=== PATIENT | male | born 2000 | race Hispanic/Latino ===

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

== ENCOUNTER 2022-11-10 12:53 | Inpatient (IN) | payer SELFPAY ==
[2022-11-10] MEDS ORDERED: FAMOTIDINE 20 MG/2 ML VIAL IV ONE (13:31)
[2022-11-10] MEDS ORDERED: NA CHLORIDE 0.9% 1,000 ML ONE ×2 (13:31→15:17)
[2022-11-10 14:00] LABS: Absolute Lymphocytes (CBC) 2.2 K/uL (0.7-4.9); Hematocrit 44.9 % (39.6-49.0); Lymphocytes % 16.3 % (15.3-44.8); MCV 90.1 fL (80-100); MPV 9.4 fL (7.6-11.3); RBC Red Blood Cell Count 4.98 M/uL (4.33-5.43)
[2022-11-10 14:16] LABS: Albumin 3.9 g/dL (3.4-5.0); Bilirubin Total 1.2 mg/dL (0.2-1.0); Potassium 3.6 mEq/L (3.5-5.1)
--- NOTE | 2022-11-10 15:02 | RAD REPORT ---
EXAM DESCRIPTION: CT - Abdomen Pelvis W Contrast - 11/10/2022 2:26 pm CLINICAL HISTORY: ABD PAIN COMPARISON: No comparisons TECHNIQUE: Thin cut axial CT imaging of the abdomen and pelvis was performed following intravenous a dministration of 95 mL Isovue 300. Multiplanar reformats were generated and reviewed. All CT scans are performed using dose optimization technique as appropriate and may include automated exposure control or mA/KV adjustment according to patient size. FINDINGS: No suspicious findings in the lung bases. The liver demonstrates diffuse parenchymal hypoattenuation suggesting steatosis. Geographic region of fatty sparing adjacent to the gallbladder bed. Adrenal glands, spleen, and pancreas show no suspicio us findings. Gallbladder and biliary tree are also without suspicious finding. Symmetric renal function is seen with no hydronephrosis or suspicious renal mass. Inflammatory changes with hyperenhancement and fat stranding along the appendix. Ill-defined contours at the tip, with an ill-defined 2.9 x 1.1 centimeter fluid collection along the right pelvic sidewal l. Trace amount of non loculated fluid tracking more superiorly along the mesentery, axial image 62. Adjacent ileal loop demonstrates inflammatory changes with mucosal hyperenhancement. No free air, karishma e fluid or inflammatory stranding. No hernia, mass or bulky lymphadenopathy. The urinary bladder is s uboptimally distended limiting evaluation, without significant finding. No suspicious bony findings. IMPRESSION: Findings of ruptured appendix at the tip, with adjacent ileitis. Phlegmon or early absc ess formation along the right pelvic sidewall, measuring 2.9 x 1.1 centimeter in greatest axial dimen sions. No evidence of free air. The findings were communicated to Lis Ballard on 11/10/2022 at 14:56 hours.
--- NOTE | 2022-11-10 15:10 | ER ---
Nurse's Notes [facility] Name: Satnam Melendez Age: 22 yrs Sex: Male : 2000 Arrival Date: 11/10/2022 Time: 12:53 Bed 4 Private MD: Diagnosis: Acute appendicitis with localized peritonitis-ruptured Presentation: 11/10 13:17 Chief complaint: Patient states: ABD pain x 3-4 days near umbilical, denies N/V. vg1 Coronavirus screen: Vaccine status: Patient reports receiving the 2nd dose of the covid vaccine. Ebola Screen: Patient negative for fever greater than or equal to 101.5 degrees Fahrenheit, and additional compatible Ebola Virus Disease symptoms Patient denies exposure to infectious person. Patient denies travel to an Ebola-affected area in the 21 days before illness onset. Initial Sepsis Screen: Does the patient meet any 2 criteria? HR > 90 bpm. Does the patient have a suspected source of infection? No. Patient's initial sepsis screen is negative. Risk Assessment: Do you want to hurt yourself or someone else? Patient reports no desire to harm self or others. Onset of symptoms was November 07, 2022. 13:17 Method Of Arrival: Ambulatory vg1 13:17 Acuity: ROSMERY 3 vg1 Triage Assessment: 13:20 General: Appears uncomfortable, Behavior is calm, cooperative. Pain: Complains of pain vg1 in abdomen Pain currently is 7 out of 10 on a pain scale. GI: Patient currently denies diarrhea, nausea, vomiting. Historical: - Allergies: 13:20 No Known Allergies; vg1 - Home Meds: 13:20 None [Active]; vg1 - PMHx: 13:20 None; vg1 - PSHx: 13:20 None; vg1 - Immunization history:: Client reports receiving the 1st dose of the Covid vaccine. - Social history:: Smoking status: Reported history of juuling and/or vaping. Screenin:38 [facility] ED Fall Risk Assessment (Adult) Score/Fall Risk Level 0 - 2 = Low Risk hb Oriented to surroundings, Maintained a safe environment. Abuse screen: Denies threats or abuse. Denies injuries from another. Nutritional screening: No deficits noted. Tuberculosis screening: No symptoms or risk factors identified. Assessment: 13:36 Reassessment: No changes from previously documented assessment. Patient and/or family ll1 updated on plan of care and expected duration. Pain level reassessed. Patient is alert, oriented x 3, equal unlabored respirations, skin warm/dry/pink. 14:12 Reassessment: No changes from previously documented assessment. Patient and/or family ll1 updated on plan of care and expected duration. Pain level reassessed. Patient is alert, oriented x 3, equal unlabored respirations, skin warm/dry/pink. 15:25 Reassessment: Patient appears in no apparent distress at this time. Patient and/or hb family updated on plan of care and expected duration. Pain level reassessed. Patient is alert, oriented x 3, equal unlabored respirations, skin warm/dry/pink. 15:38 Reassessment:. ll1 Vital Signs: 13:17 BP 134 / 74; Pulse 95; Resp 16; Temp 98.9(O); Pulse Ox 100% on R/A; Weight 88.45 kg; vg1 Height 5 ft. 11 in. ; Pain 7/10; 13:38 BP 120 / 73; Pulse 88; Resp 16; Pulse Ox 99% on R/A; hb 15:26 BP 129 / 79; Pulse 87; Resp 16; Pulse Ox 95% ; hb 13:17 Body Mass Index 27.20 (88.45 kg, 180.34 cm) vg1 13:17 Pain Scale: Adult vg1 ED Course: 12:55 Patient arrived in ED. mr 12:57 Elio Lis, SAVAGE [facility] snw 12:57 Wayne Disla MD is Attending Physician. snw 13:20 Triage completed. vg1 13:20 Arm band placed on. vg1 13:35 Reid Chappell, MINO is Primary Nurse. ll1 13:35 Inserted saline lock: 22 gauge in left forearm, using aseptic technique. Blood ll1 collected. 13:36 Strep Sent. ll1 13:38 Patient has correct armband on for positive identification. hb 14:29 CT Abd/Pelvis - IV Contrast Only In Process Unspecified. EDMS 15:09 Munir Ozuna MD is Hospitalizing Provider. snw 15:36 No provider procedures requiring assistance completed. Patient admitted, IV remains in ll1 place. Administered Medications: 13:36 Drug: NS 0.9% IV 1000 ml Route: IV; Rate: 1 bolus; Site: left forearm; ll1 15:37 Follow up: Response: No adverse reaction; IV Status: Completed infusion; IV Intake: ll1 1000ml 13:36 Drug: Famotidine IVP 20 mg Route: IVP; Site: left forearm; ll1 14:09 Follow up: Response: No adverse reaction [facility] 15:25 Drug: Piperacillin-Tazobactam IVPB 3.375 grams Route: IVPB; Infused Over: 60 mins; hb Site: left antecubital; 15:37 Follow up: IV Status: Infusion continued upon admission 1 15:25 Drug: NS 0.9% IV 1000 ml Route: IV; Rate: 150 ml/hr; Site: left antecubital; hb 15:37 Follow up: IV Status: Infusion continued upon admission 1 15:25 Drug: fentaNYL (PF) IVP 25 mcg Route: IVP; Site: left antecubital; hb 15:37 Follow up: Response: No adverse reaction; Pain is decreased; RASS: Alert and Calm (0) [facility] Medication: 13:38 VIS not applicable for this client. hb Intake: 15:37 IV: 1000ml; Total: 1000ml. [facility] Outcome: 15:10 Decision to Hospitalize by Provider. snw 15:36 Admitted to Med/surg accompanied by tech, via stretcher, with chart, Report called to ll1 OR tech 15:36 Condition: stable 15:36 Instructed on the need for admit. 15:38 Patient left the ED. [facility] Signatures: Dispatcher [employer] EDCO Lis Ballard FNP-C WIRE SPLICER-Elda Meyers Heather, RN RN hb Garcia, Victoria, RN RN vg1 Reid Chappell RN RN 1 Corrections: (The following items were deleted from the chart) 13:20 13:17 Pulse 95bpm; Resp 16bpm; Pulse Ox 100% RA; Temp 98.9F Oral; 88.45 kg; Height 5 vg1 ft. 11 in.; BMI: 27.2; Pain 7/10, Adult; vg1
--- NOTE | 2022-11-10 15:10 | EDPHYS ---
Physician Documentation [facility] Name: Satnam Melendez Age: 22 yrs Sex: Male : 2000 Arrival Date: 11/10/2022 Time: 12:53 Bed 4 Private MD: ED Physician Wayne Disla HPI: 11/10 13:35 This 22 yrs old Male presents to ER via Ambulatory with complaints of snw Abdominal Pain. 13:35 The patient presents with abdominal pain in the lower abdomen. Onset: The snw symptoms/episode began/occurred 1 month(s) ago, and improved and then started 2-3 days ago with worsening. The symptoms do not radiate. The patient has experienced a previous episode, last month, but today's symptoms are worse. The patient has not recently seen a physician. Historical: - Allergies: 13:20 No Known Allergies; vg1 - Home Meds: 13:20 None [Active]; vg1 - PMHx: 13:20 None; vg1 - PSHx: 13:20 None; vg1 - Immunization history:: Client reports receiving the 1st dose of the Covid vaccine. - Social history:: Smoking status: Reported history of juuling and/or vaping. ROS: 13:35 Constitutional: Negative for fever, chills, and weight loss, Eyes: Negative for injury, snw pain, redness, and discharge, ENT: Negative for injury, pain, and discharge, Neck: Negative for injury, pain, and swelling, Cardiovascular: Negative for chest pain, palpitations, and edema, Respiratory: Negative for shortness of breath, cough, wheezing, and pleuritic chest pain, Back: Negative for injury and pain, : Negative for injury, bleeding, discharge, and swelling, MS/Extremity: Negative for injury and deformity, Skin: Negative for injury, rash, and discoloration, Neuro: Negative for headache, weakness, numbness, tingling, and seizure, Psych: Negative for depression, anxiety, suicide ideation, homicidal ideation, and hallucinations. 13:35 Abdomen/GI: Positive for abdominal pain, of the umbilical area, suprapubic area and right lower quadrant. Exam: 13:34 Constitutional: This is a well developed, well nourished patient who is awake, alert, snw and in no acute distress. Head/Face: Normocephalic, atraumatic. Eyes: Pupils equal round and reactive to light, extra-ocular motions intact. Lids and lashes normal. Conjunctiva and sclera are non-icteric and not injected. Cornea within normal limits. Periorbital areas with no swelling, redness, or edema. ENT: Nares patent. No nasal discharge, no septal abnormalities noted. Tympanic membranes are normal and external auditory canals are clear. Oropharynx with mild redness, no swelling, or masses, exudates, or evidence of obstruction, uvula midline. Mucous membranes moist. Neck: Trachea midline, no thyromegaly or masses palpated, and no cervical lymphadenopathy. Supple, full range of motion without nuchal rigidity, or vertebral point tenderness. No Meningismus. Chest/axilla: Normal chest wall appearance and motion. Nontender with no deformity. No lesions are appreciated. Cardiovascular: Regular rate and rhythm with a normal S1 and S2. No gallops, murmurs, or rubs. Normal PMI, no JVD. No pulse deficits. Respiratory: Lungs have equal breath sounds bilaterally, clear to auscultation and percussion. No rales, rhonchi or wheezes noted. No increased work of breathing, no retractions or nasal flaring. Back: No spinal tenderness. No costovertebral tenderness. Full range of motion. Skin: Warm, dry with normal turgor. Normal color with no rashes, no lesions, and no evidence of cellulitis. MS/ Extremity: Pulses equal, no cyanosis. Neurovascular intact. Full, normal range of motion. Neuro: Awake and alert, GCS 15, oriented to person, place, time, and situation. Cranial nerves II-XII grossly intact. Motor strength 5/5 in all extremities. Sensory grossly intact. Cerebellar exam normal. Normal gait. Psych: Awake, alert, with orientation to person, place and time. Behavior, mood, and affect are within normal limits. 13:34 Abdomen/GI: Inspection: abdomen appears normal, Bowel sounds: normal, Palpation: moderate abdominal tenderness, in all quadrants, involuntary guarding, is elicited in the right lower quadrant, Indicators: McBurney's point is tender, Psoas sign is positive. Vital Signs: 13:17 BP 134 / 74; Pulse 95; Resp 16; Temp 98.9(O); Pulse Ox 100% on R/A; Weight 88.45 kg; vg1 Height 5 ft. 11 in. ; Pain 7/10; 13:38 BP 120 / 73; Pulse 88; Resp 16; Pulse Ox 99% on R/A; hb 15:26 BP 129 / 79; Pulse 87; Resp 16; Pulse Ox 95% ; hb 13:17 Body Mass Index 27.20 (88.45 kg, 180.34 cm) vg1 13:17 Pain Scale: Adult vg1 MDM: 12:58 Patient medically screened. snw 15:07 Differential diagnosis: appendicitis, diverticulitis, gastroesophageal reflux disease, snw non-specific abd pain, Ureterolithiasis. Data reviewed: vital signs, nurses notes. Management of patient was discussed with the following: Dr. Ozuna. Call OR team. . Counseling: I had a detailed discussion with the patient and/or guardian regarding: the historical points, exam findings, and any diagnostic results supporting the discharge/admit diagnosis, lab results, radiology results, the need for further work-up and treatment in the hospital. Response to treatment: There is no appreciated change of the patient's symptoms at this time. ED course: . 11/10 13:21 Order name: CBC with Diff; Complete Time: 14:37 snw 11/10 13:21 Order name: CMP; Complete Time: 14:37 snw 11/10 13:21 Order name: Lipase; Complete Time: 14:37 snw 11/10 13:21 Order name: Strep formerly [facility] 11/10 14:59 Order name: Throat Culture EDTN 11/10 13:21 Order name: CT Abd/Pelvis - IV Contrast Only; Complete Time: 15:05 snw 11/10 13:21 Order name: IV Saline Lock; Complete Time: 13:23 snw 11/10 13:21 Order name: Labs collected and sent; Complete Time: 13:23 snw 11/10 15:07 Order name: Misc. Order: Please place pt in gown; Complete Time: 15:08 snw 11/10 15:07 Order name: NPO; Complete Time: 15:08 snw Administered Medications: 13:36 Drug: NS 0.9% IV 1000 ml Route: IV; Rate: 1 bolus; Site: left forearm; 1 15:37 Follow up: Response: No adverse reaction; IV Status: Completed infusion; IV Intake: ll1 1000ml 13:36 Drug: Famotidine IVP 20 mg Route: IVP; Site: left forearm; ll1 14:09 Follow up: Response: No adverse reaction ll1 15:25 Drug: Piperacillin-Tazobactam IVPB 3.375 grams Route: IVPB; Infused Over: 60 mins; hb Site: left antecubital; 15:37 Follow up: IV Status: Infusion continued upon admission ll1 15:25 Drug: NS 0.9% IV 1000 ml Route: IV; Rate: 150 ml/hr; Site: left antecubital; hb 15:37 Follow up: IV Status: Infusion continued upon admission ll1 15:25 Drug: fentaNYL (PF) IVP 25 mcg Route: IVP; Site: left antecubital; hb 15:37 Follow up: Response: No adverse reaction; Pain is decreased; RASS: Alert and Calm (0) ll1 Disposition: 16:22 Co-signature as Attending Physician, Wayne Disla MD I agree with the assessment and kdr plan of care. Disposition Summary: 11/10/22 15:10 Hospitalization Ordered Hospitalization Status: Inpatient Admission snw Provider: Munir Ozuna sncedric Location: Operating Room snw Condition: Stable snw Problem: new snw Symptoms: are unchanged snw Bed/Room Type: Standard snw Room Assignment: snw Diagnosis - Acute appendicitis with localized peritonitis - ruptured snw Forms: - Medication Reconciliation Form snw - SBAR form snw Signatures: Dispatcher [employer] Wayne Alvarado MD MD kdr Waters, Shelly, FNP-Nikki [employer] CONTROL OFFICER-[employer] Brenda Melendez, RN Marisela Coelho RN RN vg1 Reid Chappell RN RN ll1
[2022-11-10] MEDS ORDERED: PIPERACIL/TAZO 3.375 GM VIAL IV ONE (15:17)
[2022-11-10] MEDS ORDERED: FENTANYL CITR 100 MCG/2 ML ONE ×2 (15:17→16:26)
[2022-11-10] MEDS ORDERED: NA CHLORIDE 0.9% 100 ML ONE (15:17)
[2022-11-10] MEDS ORDERED: BUPIVACAINE 0.25% PF 10 ML VIAL ONE (15:52)
[2022-11-10] MEDS ORDERED: Ringers Lactate 1,000 ML IV ONE (16:07)
[2022-11-10] MEDS ORDERED: SUCCINYLCHOLINE 20 MG/ML (10 ML) IV ONE (16:23)
[2022-11-10] MEDS ORDERED: propofoL 200 MG/20 ML VIAL IV ONE (16:26)
[2022-11-10] MEDS ORDERED: ROCURONIUM 50 MG/5 ML VIAL IV ONE (16:27)
[2022-11-10] MEDS ORDERED: MIDAZOLAM HCL 2 MG/2 ML INJ ONE (16:27)
--- NOTE | 2022-11-10 17:15 | HP ---
Date of Admission: 11/10/2022 Brief History Of Present Illness: The patient is a 22-year-old male who presents with a his tory of abdominal pain beginning approximately 3 days prior, predominantly located in the periumbilic al region now with radiation to the right lower quadrant. He has had episodes before in the past michelle roximately 1 month ago, but it improved after a short period of bowel rest at that time. He states t hat on this particular occasion, the pain got progressively worse, did not improve, and became fairly more intense and localized to the right lower quadrant associated with fever and chills. No nausea. No vomiting. No change in bowel or bladder habits. No sick contacts. No recent travel. Past Medical History: Negative. Past Surgical History: Negative. Allergies: NO KNOWN DRUG ALLERGIES. Home Medications: None. Social History: He admits to using vaping, alcohol use before in the past, with being seen in the ER for intoxication several years ago, but he reports no additional recreational drug use of any kind. 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 Review of Systems: Ten-point review of systems other than HPI, denies. Physical Examination: General: At the time of my examination, he is awake, alert, and oriented. Psychiatric: Appropriate, conversive. HEENT: He is normocephalic. Sclerae anicteric. Mucous membranes moist. Oropharynx clear. Neck: Supple without JVD. Chest: Expansion and excursion. Cardiovascular: Regular rate and rhythm. Pulmonary: Clear to auscultation bilaterally. Abdomen: Soft. Positive right lower quadrant tenderness to palpation at McBurney's point. Positive rebound. Positive guarding. Positive focal peritonitis. Extremities: No clubbing, cyanosis, or edema. Skin: Warm and dry. Vital Signs: His blood pressure was 134/74, pulse is 94, respiratory rate 16, temperature 98.9, puls e ox 100% on room air. He is 5 feet 10 inches, 88 kg. Laboratory Data: At the time of my examination, his white blood cell count is 13.5, hemoglobin 15.2, hematocrit 44.9, platelet count is 223. His chemistry showed a sodium 133, potassium 3.6, chloride 102, carbon dioxide 26, BUN 16, creatinine 1.0, glucose 108. Calcium 9.2, total bilirubin 1.2, AST 1 4, ALT 32, alkaline phosphatase 71, lipase is 14. He had a CT scan performed of abdomen and pelvis w hich is officially read by radiologist as findings of ruptured appendix at the tip with adjacent ilei tis, phlegmon or early abscess formation along the right pelvic sidewall measuring 2.9 x 1.1 cm in gr eatest axial dimension. No free air. Assessment And Plan: This is a 22-year-old male who presents with signs and symptoms of perforated a ppendicitis. 1.IV fluid hydration. 2.Antibiotic coverage with Zosyn 3.375 IV q.6. 3.I have explained the risks, benefits, and alternatives of emergent laparoscopic appendectomy inclu ding possible open appendectomy including, but not limited to bleeding, infection, damage to surround ing tissues, injury to intestines, need for further operation or procedures. The patient agreed to p roceed as indicated. THERESA/THEA Voice ID: [id number]
[2022-11-10] MEDS ORDERED: NEOSTIGMINE 1 MG/ML -10 ML VIAL ONE (17:16)
[2022-11-10] MEDS ORDERED: GLYCOPYRROLATE 0.2 MG/ML SYR ONE (17:16)
--- NOTE | 2022-11-10 17:27 | P.OP ---
Preoperative diagnosis: Acute Perforated Appendicitis Postoperative diagnosis: Acute Perforated Appendicitis Primary procedure: Laparoscopic Appendectomy Anesthesia: GETA + Local Estimated blood loss: <10cc Specimen: Vermiform Appendix Findings: Perforated appendicitis, abscess, small bowel inflammed Complications: None Drain(s): JIMMY drain (10 mm Flat) Transferred to: Recovery Room () Condition: Good
[2022-11-10] MEDS ORDERED: ONDANSETRON 4 MG (ODT) TAB PO PRN (17:42)
[2022-11-10] MEDS ORDERED: KETOROLAC 30 MG/ML INJ ONE (18:02)
[2022-11-10] MEDS: HYDROMORPHONE HCL 2 MG/ML inj ONE ×2 (18:07→18:13)
--- NOTE | 2022-11-10 18:10 | OP ---
Date of Procedure: 11/10/2022 Surgeon: Munir Ozuna MD, Preoperative Diagnosis: Acute perforated appendicitis. Postoperative Diagnosis: Acute perforated appendicitis. Procedure Performed: Laparoscopic appendectomy. Anesthesia: General endotracheal plus local with 0.25% Marcaine. Estimated Blood Loss: Less than 5 cc. Specimen: Vermiform appendix. Findings: Acute perforated appendicitis with abscess, small bowel inflammation and significant intra abdominal adhesions in the right lower quadrant. Complications: None. Drains: 10 mm flat JIMMY drain placed. Disposition: Patient transferred to recovery room in good condition. Procedure In Detail: After informed consent was obtained, patient was brought to the operating room, prepped and draped in the usual sterile fashion. After adequate anesthesia was achieved, an infraum bilical area was anesthetized with 0.25% Marcaine, sharply incised. A 5 mm trocar was placed under d irect visualization without evidence of complication. Insufflation was obtained to 15 mmHg at this t ivone. There was no injury to vital structures upon entry into the abdomen. Two additional trocars we re placed, one in the right lower quadrant and one in the left lower quadrant and both of these were similarly anesthetized and sharply incised. A 5 mm trocar was placed under direct visualization with out evidence of complication. The umbilical trocar was then upsized to a 12 mm under direct visualiz ation without evidence of any complication. Patient was positioned head down right side up position. Ratcheted grasper was used to grasp the patient's appendix and created mesoappendiceal window with a [place] retractor. Significant inflammatory process was appreciated and pus-like material, this w as all suctioned out with a suction spinal surgeon at this point, and a combination of LigaSure and blunt dissection allowed for separation of the small bowel from the appendix which was quite inflamed and h ad evidence of perforation. It was quite thick and friable and difficult to grasp due to the signifi cant inflammatory change of the appendix. All adhesions were taken down using a combination predomin antly of blunt dissection as well as LigaSure to allow for mobilization of the appendix and the cecum . At this point, an Endo-NORA 45 purple load was fired across the base of the appendix and confluence of the cecum with good approximation of tissues. I then used the LigaSure to take down the mesoappe ndix without evidence of complication. The appendix was then placed in an EndoCatch bag, removed thr ough the umbilical trocar site and sent off for pathologic examination. The abdomen was then re-insu fflated at this point. The area was copiously irrigated and the entire pelvis was copiously irrigate d including small bowel and the surrounding area and suctioned out to completely clear. I then passe d a 10 mm flat JIMMY drain through the right lower quadrant, placed it in the right colonic fossa and ex tended all the way into the pelvis and was secured to the skin using a 2-0 nylon suture. At this poi nt, I closed the umbilical trocar site using a Alberto-Mireya suture passer with 0 Vicryl in an inte rrupted fashion with good approximation of tissues. The abdomen was then desufflated with remaining trocar under direct visualization without evidence of complication. All trocars were removed. All s kin incisions were copiously irrigated and closed with interrupted keith and sterile dressing was p laced over top. The patient tolerated the procedure without any evidence of complication and transfer red to PACU in good condition. All counts were correct at the end of the case. THERESA/THEA Voice ID: [id number] Report ID: [id number]
[2022-11-10] MEDS: FENTANYL CITR 100 MCG/2 ML ONE ×2 (18:18→18:23)
[2022-11-10] MEDS: D5.45NS W/KCL 20MEQ 1,000 ML IV SCH (18:52)
[2022-11-10] MEDS: INSULIN -REGULAR HUMAN 50 UNIT/0.5 ML ML SQ SCH (21:00)
[2022-11-10] MEDS: HYDROMORPHONE HCL 1 MG/ML INJ IV PRN (22:01)
[2022-11-11] MEDS: PIPER TAZO 3.375 GM in NA CHLORIDE 0.9% 100 ML IV SCH ×3 (00:21→17:35)
[2022-11-11] MEDS: HYDROMORPHONE HCL 1 MG/ML INJ IV PRN ×5 (02:05→21:46)
[2022-11-11 03:40] LABS: Absolute Lymphocytes (CBC) 2.3 K/uL (0.7-4.9); Hematocrit 38.1 % (39.6-49.0); Lymphocytes % 18.5 % (15.3-44.8); MCV 90.8 fL (80-100); MPV 9.4 fL (7.6-11.3)
[2022-11-11 03:41] LABS: Magnesium 2.2 mg/dL (1.6-2.4); Phosphorus 3.9 mg/dL (2.5-4.9); Potassium 3.7 mEq/L (3.5-5.1)
[2022-11-11] MEDS: D5.45NS W/KCL 20MEQ 1,000 ML IV SCH ×4 (04:14→21:48)
[2022-11-11] MEDS: HYDROCODONE/APAP 7.5/325 MG TAB PO PRN ×2 (06:31→20:20)
[2022-11-11] MEDS: INSULIN -REGULAR HUMAN 50 UNIT/0.5 ML ML SQ SCH ×4 (07:30→20:36)
[2022-11-11] MEDS ORDERED: POTASSIUM CL SA 10 MEQ TAB PO ONE (09:00)
[2022-11-12] MEDS: PIPER TAZO 3.375 GM in NA CHLORIDE 0.9% 100 ML IV SCH ×3 (00:48→16:29)
[2022-11-12] MEDS ORDERED: PIPERACIL/TAZO 3.375 GM VIAL IV ONE (00:52)
[2022-11-12] MEDS ORDERED: NA CHLORIDE 0.9% 100 ML ONE (00:53)
[2022-11-12] MEDS: HYDROCODONE/APAP 7.5/325 MG TAB PO PRN ×4 (00:59→20:41)
[2022-11-12 04:18] LABS: Absolute Lymphocytes (CBC) 1.8 K/uL (0.7-4.9); Hematocrit 40.4 % (39.6-49.0); Lymphocytes % 19.9 % (15.3-44.8); MCV 91.7 fL (80-100); RBC Red Blood Cell Count 4.41 M/uL (4.33-5.43)
[2022-11-12 04:36] LABS: Magnesium 2.2 mg/dL (1.6-2.4); Phosphorus 3.9 mg/dL (2.5-4.9); Potassium 3.8 mEq/L (3.5-5.1)
[2022-11-12] MEDS: HYDROMORPHONE HCL 1 MG/ML INJ IV PRN ×3 (04:38→16:34)
[2022-11-12] MEDS: INSULIN -REGULAR HUMAN 50 UNIT/0.5 ML ML SQ SCH ×4 (07:30→21:00)
[2022-11-12] MEDS: D5.45NS W/KCL 20MEQ 1,000 ML IV SCH ×3 (07:34→16:28)
[2022-11-12] MEDS ORDERED: POTASSIUM CL SA 10 MEQ TAB PO ONE (09:00)
[2022-11-12 17:40] VITALS: BMI 26.4
[2022-11-12 22:03] VITALS: O2SAT 98
[2022-11-13] MEDS: HYDROMORPHONE HCL 1 MG/ML INJ IV PRN (01:02)
[2022-11-13] MEDS: PIPER TAZO 3.375 GM in NA CHLORIDE 0.9% 100 ML IV SCH ×2 (01:03→08:04)
[2022-11-13] MEDS: D5.45NS W/KCL 20MEQ 1,000 ML IV SCH ×2 (02:59→06:00)
[2022-11-13 03:53] LABS: Hematocrit 40.6 % (39.6-49.0); Lymphocytes % 26.2 % (15.3-44.8); MPV 8.4 fL (7.6-11.3); RBC Red Blood Cell Count 4.46 M/uL (4.33-5.43)
[2022-11-13 04:09] LABS: Magnesium 2.2 mg/dL (1.6-2.4); Phosphorus 4.6 mg/dL (2.5-4.9); Potassium 3.8 mEq/L (3.5-5.1)
[2022-11-13] MEDS: INSULIN -REGULAR HUMAN 50 UNIT/0.5 ML ML SQ SCH (07:30)
[2022-11-13] MEDS: HYDROCODONE/APAP 7.5/325 MG TAB PO PRN (08:05)
[2022-11-13 08:54] VITALS: BP 142/81; TEMP 97.7
[2022-11-13] MEDS ORDERED: POTASSIUM CL SA 10 MEQ TAB PO ONE (09:00)
== END 2022-11-13 12:07 | disposition home or self-care (01) | DRG 340 ==
LOC: ER 12:53 → 2ND 17:52
PROVIDERS: ADMIT Surgery; ATTEND Surgery
PROC: 0DTJ4ZZ Resection of Appendix, Percutaneous Endoscopic Approach (ICD-10-PCS; principal; 2022-11-10 15:45)
DX: K35.32 Acute appendicitis with perforation, localized peritonitis, and gangrene, without abscess (principal); Z28.311 Partially vaccinated for COVID-19; Z87.891 Personal history of nicotine dependence; Z79.899 Other long term (current) drug therapy
CPT/HCPCS: 36415; 74177; 80048; 80053; 82947; 83690; 83735; 84100; 85025; 87070; 87081; 88304; 94010; 97116; 97161; 99285; J1170; J1815; J2250; J2543; J2704; J2710; J3010; J7030; J7120; Q9967

== ENCOUNTER 2023-10-29 07:58 | Emergency (ER) | payer SELFPAY ==
[2023-10-29] MEDS ORDERED: FLUORESCEIN SODIUM 1 MG/WRAP ONE (08:09)
[2023-10-29] MEDS ORDERED: TETRACAINE HCL 0.5% 4ML OPTH ONE (08:09)
--- NOTE | 2023-10-29 08:22 | ER ---
Nurse's Notes [facility] Name: Satnam Melendez Age: 23 yrs Sex: Male : 2000 Arrival Date: 10/29/2023 Time: 07:58 Bed 15 Private MD: Diagnosis: Superglue in right eye Presentation: 10/28 08:15 Chief complaint: Patient states: he mistakenly put fingernail glue into his right eye ap3 this morning thinking that it was eye drops. Coronavirus screen: At this time, the client does not indicate any symptoms associated with coronavirus-19. Ebola Screen: No symptoms or risks identified at this time. Initial Sepsis Screen: Does the patient meet any 2 criteria? HR > 90 bpm. Does the patient have a suspected source of infection? No. Patient's initial sepsis screen is negative. Risk Assessment: Do you want to hurt yourself or someone else? Patient reports no desire to harm self or others. Onset of symptoms was October 29, 2023. 08:15 Method Of Arrival: Ambulatory ap3 08:15 Acuity: ROSMERY 4 ap3 Triage Assessment: 08:17 General: Appears uncomfortable, Behavior is calm. Pain: Complains of pain in right eye. ap3 EENT: Sclera/Cornea are reddened in outer aspect of conjuctiva of right eye, iris of right eye and inner aspect of conjuctiva of right eye. Neuro: Level of Consciousness is awake, alert, obeys commands, Oriented to person, place, time, situation. Cardiovascular: Patient's skin is warm and dry. Respiratory: Airway is patent Respiratory effort is even, unlabored, Respiratory pattern is regular, symmetrical. Historical: - Allergies: 08:16 No Known Allergies; ap3 - Home Meds: 08:16 None [Active]; ap3 - PMHx: 08:16 None; ap3 - Immunization history:: Client reports receiving the 2nd dose of the Covid vaccine. - Infectious Disease History:: Denies. - Social history:: Smoking status: Reported history of juuling and/or vaping. Screenin:17 [facility] ED Fall Risk Assessment (Adult) History of falling in the last 3 months, ap3 including since admission No falls in past 3 months (0 pts) Confusion or Disorientation No (0 pts) Intoxicated or Sedated No (0 pts) Impaired Gait No (0 pts) Mobility Assist Device Used No (0 pt) Altered Elimination Yes (1 pt) Score/Fall Risk Level 0 - 2 = Low Risk Oriented to surroundings, Maintained a safe environment, Educated pt \T\ family on fall prevention, incl call for assistance when getting out of bed, Assessed \T\ reinforced patient's understanding of fall precautions, Provided non-skid footwear, Hourly rounding (assess needs \T\ fall precautionary measures) done, Used ambulatory aids as needed (educated on \T\ assisted with), Used gait belt as appropriate. Abuse screen: Denies threats or abuse. Nutritional screening: No deficits noted. Tuberculosis screening: No symptoms or risk factors identified. Assessment: 08:26 General: Appears in no apparent distress. Behavior is calm, cooperative, appropriate ko1 for age. Pain: Complains of pain in right eye. Neuro: No deficits noted. Cardiovascular: No deficits noted. Respiratory: No deficits noted. GI: No deficits noted. : No deficits noted. EENT: Reports pain in right eye. Derm: No deficits noted. Musculoskeletal: No deficits noted. Vital Signs: 08:15 BP 165 / 91; Pulse 98; Resp 19; Temp 98.1; Pulse Ox 100% ; Weight 86.18 kg; Pain 7/10; ap3 08:26 BP 160 / 93; Pulse 90; Resp 16; Pulse Ox 99% ; ko1 08:15 Pain Scale: Adult ap3 ED Course: 08:00 Patient arrived in ED. mg5 08:03 Carlton Gutierrez DO is Attending Physician. ms3 08:03 Rachel Bhatia, RN is Primary Nurse. ko1 08:16 Triage completed. ap3 08:18 Arm band placed on right wrist. ap3 08:18 Patient has correct armband on for positive identification. Bed in low position. Call ap3 light in reach. Side rails up X 1. Adult w/ patient. Pulse ox on. NIBP on. 08:18 Provided Education on: appropriate use of call light. ap3 08:18 Assist provider with eye exam of right eye. using fluorescein stain, Performed by ap3 Carlton Gutierrez DO Patient tolerated well. 08:21 Jeromy Turner MD is Referral Physician. ms3 08:26 Patient did not have IV access during this emergency room visit. ko1 Administered Medications: No medications were administered Medication: 08:18 VIS not applicable for this client. ap3 Outcome: :22 Discharge ordered by . ms3 08:26 Discharged to home ambulatory, with family, ko1 08: Condition: stable 08:26 Discharge instructions given to patient, family, Instructed on discharge instructions, follow up and referral plans. Demonstrated understanding of instructions, follow-up care, 08:28 Patient left the ED. ko1 Signatures: Radha Allen RN RN ap3 Carlton Gutierrez DO DO ms3 Rachel Bhatia, MINO RN ko1 Sara Sharma mg5
[2023-10-29 09:04] VITALS: BP 160/93; TEMP 98.1; O2SAT 99
--- NOTE | 2023-10-30 08:28 | EDPHYS ---
Physician Documentation [facility] Name: Satnam Melendez Age: 23 yrs Sex: Male : 2000 Arrival Date: 10/29/2023 Time: 07:58 Bed 15 Private MD: ED Physician Carlton Gutierrez HPI: 10/28 10:13 This 23 yrs old Male presents to ER via Ambulatory with complaints of Eye ms3 Problem - Glue In Eye. 10:13 23-year-old male with no past medical history presents to the emergency department ms3 after applying superglue to his right eye. Patient states he thought he was applying eyedrops and had grabbed the glue bottle instead. Patient states his discomfort is 7/10. Patient denies any alleviating or inciting factors.. Historical: - Allergies: 08:16 No Known Allergies; ap3 - Home Meds: 08:16 None [Active]; ap3 - PMHx: 08:16 None; ap3 - Immunization history:: Client reports receiving the 2nd dose of the Covid vaccine. - Infectious Disease History:: Denies. - Social history:: Smoking status: Reported history of juuling and/or vaping. ROS: 10:13 Constitutional: Negative for fever, and chills. ms3 10:13 Cardiovascular: Negative for chest pain, and palpitations. Respiratory: Negative for shortness of breath, cough, wheezing, and pleuritic chest pain, Abdomen/GI: Negative for abdominal pain, nausea, vomiting, diarrhea, and constipation, Skin: Negative for injury, rash, and discoloration, 10:13 Eyes: Positive for blurry vision, pain, redness, Exam: 10:13 Constitutional: This is a well developed, well nourished patient who is awake, alert, ms3 and in no acute distress. 10:13 Head/Face: Normocephalic, atraumatic. Eyes: Right eyelashes clumped with glue, severe conjunctival irritation/erythema, on staining of eye foreign body seen in the 6 to 8 o'clock position. No abrasions noted Cardiovascular: Regular rate and rhythm with a normal S1 and S2. No gallops, murmurs, or rubs. Normal PMI, no JVD. No pulse deficits. Respiratory: Lungs have equal breath sounds bilaterally, clear to auscultation and percussion. No rales, rhonchi or wheezes noted. No increased work of breathing, no retractions or nasal flaring. Abdomen/GI: Soft, non-tender, with normal bowel sounds. No distension or tympany. No guarding or rebound. No evidence of tenderness throughout. Vital Signs: 08:15 BP 165 / 91; Pulse 98; Resp 19; Temp 98.1; Pulse Ox 100% ; Weight 86.18 kg; Pain 7/10; ap3 08:26 BP 160 / 93; Pulse 90; Resp 16; Pulse Ox 99% ; ko1 08:15 Pain Scale: Adult ap3 MDM: 08:19 Patient medically screened. ms3 10:13 Differential diagnosis: Corneal abrasion of right eye. Foreign body in right eye. ms3 Chemical conjunctivitis in right eye. Data reviewed: vital signs, nurses notes, and as a result, I will discharge patient. Management of patient was discussed with the following: Deputy Sheriff Lieutenant: Dr Turner. Counseling: I had a detailed discussion with the patient and/or guardian regarding the historical points, exam findings, and any diagnostic results supporting the discharge/admit diagnosis, the need for outpatient follow up, to return to the emergency department if symptoms worsen or persist or if there are any questions or concerns that arise at home. ED course: Discussed case with Dr. Turner and he would like patient sent to his office. Patient provided Dr. Turner's office address information. Patient to follow-up Dr. Turner today. Patient understands and agrees with plan. All questions were answered.. Administered Medications: No medications were administered Disposition: 14:04 Chart complete. ms3 Disposition Summary: 10/29/23 08:22 Discharge Ordered Notes: Location: Home ms3 Condition: Stable ms3 Diagnosis - Superglue in right eye ms3 Followup: ms3 - With: Jeromy Turner MD - When: Today - Reason: Recheck today's complaints Discharge Instructions: - Discharge Summary Sheet ms3 - Eye Foreign Body, [id number] ms3 Forms: - Medication Reconciliation Form ms3 - Antibiotic Education ms3 - Prescription Opioid Use ms3 - Patient Portal Instructions ms3 - Leadership Thank You Letter ms3 Signatures: Radha Allen RN RN ap3 Carlton Gutierrez DO DO ms3
== END 2023-10-29 08:28 | disposition home or self-care (01) ==
LOC: ER 07:58
DX: T15.91XA Foreign body on external eye, part unspecified, right eye, initial encounter (principal)